=== PATIENT | female | born 1985 | race Caucasian/White ===

== ENCOUNTER → 2017-02-02 | Outpatient (CLI) | payer BC ==
[2014-09-08 01:22] VITALS: BP 169/102
--- NOTE | 2017-02-02 13:54 | KCIC ---
MR of the right hand HISTORY: Localized mass and swelling. Lump for 6 to 8 months. TECHNIQUE: Routine multiplanar sequences are obtained. FINDINGS: Surface marker localizes the area of concern, anterior to the second MCP joint. Small soft tissue nodule at the area of concern located immediately superficial to the second flexor tendon, measures 7 mm x 3 mm x 7 mm. No surrounding edema The tendons are intact. No significant tendon sheath fluid. No significant joint effusion. No bone lesion. No acute fracture. IMPRESSION: Small soft tissue nodule superficial to the second flexor tendon at the area of concern. Nonspecific, this could represent a small ganglion cyst. Small solid nodule such as giant cell tumor of tendon sheath is possible. Benign etiology is favored, but accurate diagnosis would likely require tissue sample. Electronically signed by: Prosper Arellano MD (02/02/2017 1:51 PM)
== END | disposition home or self-care (01) ==
LOC: KCIC MRI 10:44
PROVIDERS: ATTEND Nurse Practitioner Family
DX: R22.31 Localized swelling, mass and lump, right upper limb (principal); M79.89 Other specified soft tissue disorders
CPT/HCPCS: 73218